=== PATIENT | female | born 1975 ===

== ENCOUNTER 2017-09-06 15:04 | Emergency (ER) | payer MEDICAID, OTHER ==
[2017-09-06 16:27] VITALS: BMI 37.8
[2017-09-06] MEDS ORDERED: Sodium Chloride 0.9% 1,000 ML IV STA (16:54)
--- NOTE | 2017-09-06 18:16 | ED PDOC ---
Arrival/HPI - General Chief Complaint: Back Pain Time Seen by Provider: 09/06/17 16:54 Historian: Patient - History of Present Illness Narrative History of Present Illness (Text): 09/06/17 18:08 42yr old female presents today with bilateral flank pain. pt with hx of kidney stones. pt describes pain as a achy, twisting pain located to the back bilaterally. pt states that the pain is the same as the last time she was diagnosed with kidney stones. pt denies cp or sob. no abdominal pain. no N/V/D/ C. no urinary symptoms. no fever/chills. pt states she was seen by dr. sinclair and given medications for pain. pt states she was given an rx for CT by dr. sinclair. no other complaints. Pt denies any trauma or injury. Past Medical History - Provider Review Nursing Documentation Reviewed: Yes - Travel History Have you recently traveled outside [place] w/in the past 3 mons?: No - Infectious Disease Hx of Infectious Diseases: None - Tetanus Immunization Tetanus Immunization: Unknown - Pulmonary Hx Asthma: Yes - Renal Hx Kidney Stones: Yes - Musculoskeletal/Rheumatological Hx Falls: No - Psychiatric Hx Substance Use: No - Surgical History Hx Tonsillectomy: Yes Hx Tubal Ligation: Yes Other/Comment: tubal ligation. tonsillectomy - Anesthesia Hx Anesthesia: Yes Hx Anesthesia Reactions: No Hx Malignant Hyperthermia: No Family/Social History - Physician Review Nursing Documentation Reviewed: Yes Family/Social History: Unknown Family HX Smoking Status: Never Smoked Hx Alcohol Use: Yes Hx Substance Use: No Allergies/Home Meds Allergies/Adverse Reactions: Allergies No Known Allergies Allergy (Verified 06/07/16 14:58) Review of Systems - Review of Systems Constitutional: absent: Fatigue, Fevers Respiratory: absent: SOB, Cough Cardiovascular: absent: Chest Pain, Palpitations Gastrointestinal: absent: Abdominal Pain, Constipation, Diarrhea, Nausea, Vomiting Genitourinary Female: absent: Dysuria, Frequency, Hematuria, Urine Output Changes, Vaginal Bleeding, Vaginal Discharge Musculoskeletal: Back Pain. absent: Arthralgias, Neck Pain Skin: absent: Rash, Pruritis Neurological: absent: Headache, Dizziness Psychiatric: absent: Anxiety, Depression Physical Exam Vital Signs Reviewed: Yes Vital Signs Temp Pulse Resp BP Pulse Ox 09/06/17 16:46 98.2 F 59 L 20 119/74 99 Temperature: Afebrile Blood Pressure: Normal Pulse: Regular Respiratory Rate: Normal Appearance: Positive for: Well-Appearing, Non-Toxic, Comfortable Pain Distress: None Mental Status: Positive for: Alert and Oriented X 3 - Systems Exam Head: Present: Atraumatic Mouth: Present: Moist Mucous Membranes Neck: Present: Normal Range of Motion Respiratory/Chest: Present: Clear to Auscultation Cardiovascular: Present: Regular Rate and Rhythm, Normal S1, S2. No: Murmurs Abdomen: No: Tenderness, Distention, Peritoneal Signs, Rebound, Guarding Back: Present: Normal Inspection, Paraspinal Tenderness (b/l paraspinal tenderness). No: CVA Tenderness, Midline Tenderness Upper Extremity: Present: Normal ROM Lower Extremity: Present: Normal ROM Neurological: Present: GCS=15, Speech Normal Skin: Present: Warm, Dry, Normal Color. No: Rashes Psychiatric: Present: Alert, Oriented x 3 Medical Decision Making ED Course and Treatment: 09/06/17 18:17 Patient is nontoxic well appearing with stable vital signs presenting with bilateral back pain CBC: wnl CMP: wnl Urinalysis: wnl CAT scan: FINDINGS: Limitations: Lack of intravenous contrast. Lung bases: Minimal atelectasis/scarring. ABDOMEN: Liver: Unremarkable. Gallbladder and bile ducts: No calcified stones. No ductal dilation. Pancreas: Unremarkable. No ductal dilation. Spleen: No splenomegaly. Adrenals: No mass. Kidneys and ureters: Few punctate/small renal calculi. No hydronephrosis. Stomach and bowel: No definite mural thickening. No obstruction. PELVIS: Appendix: Normal caliber. No inflammation. Bladder: Unremarkable. No stones. Reproductive: Unremarkable as visualized. ABDOMEN and PELVIS: Intraperitoneal space: No significant fluid collection. No free air. Bones/joints: No acute fracture. Soft tissues: Tiny umbilical hernia containing fat. Vasculature: Unremarkable. No aneurysm. Lymph nodes: No pathologically enlarged lymph nodes. IMPRESSION: 1. Nonobstructing renal calculi. 2. Incidental/non-acute findings are described above. Patient reassessment: pt non toxic well appearing; no distress. stable vitals. Discussed all results with patient in depth. advised f/u with pmd and urologist. advised immediate return if symptoms worsen,persist or if new symptoms develop. Patient verbalizes understanding of discharge instructions and need for immediate followup. all aspects of this case were discussed the attending of record. Impression: Back pain Motrin every 6 hours as needed for pain Increase fluids Followup with the urologist within the next 2 days Followup with primary care physician within the next 2 days Return if symptoms worsen persist or if new symptoms develop Reassessment Condition: Re-examined, Improved - Lab Interpretations Lab Results: 09/06/17 17:25 09/06/17 17:25 Lab Results 09/06/17 17:25: WBC 9.5, RBC 4.49, Hgb 12.7, Hct 38.9, MCV 86.6, MCH 28.3, MCHC 32.6, RDW 13.6, Plt Count 400, MPV 10.0, Gran % 63.3, Lymph % (Auto) 27.7, [place] % (Auto) 6.9 H, Eos % (Auto) 1.7, Baso % (Auto) 0.4, Gran # 6.00, Lymph # (Auto ) 2.6, [place] # (Auto) 0.7 H, Eos # (Auto) 0.2, Baso # (Auto) 0.04 09/06/17 17:25: Sodium 145, Potassium 4.0, Chloride 106, Carbon Dioxide 29, Anion Gap 15, BUN 8, Creatinine 0.8, Est GFR ( Amer) > 60, Est GFR (Non- Af Amer) > 60, Random Glucose 81, Calcium 9.2, Total Bilirubin 0.2, AST 22, ALT 28, Alkaline Phosphatase 99, Total Protein 7.5, Albumin 4.0, Globulin 3.5, Albumin/Globulin Ratio 1.2, Lipase 91 09/06/17 17:25: Urine Color Yellow, Urine Appearance Cloudy, Urine pH 8.0, Ur Specific [place] 1.015, Urine Protein Negative, Urine Glucose (UA) Negative, Urine Ketones Negative, Urine Blood Negative, Urine Nitrate Negative, Urine Bilirubin Negative, Urine Urobilinogen 0.2, Ur Leukocyte Esterase Negative - RAD Interpretation Radiology Orders: 09/06/17 18:20 ABD & PELVIS W/O PO OR IV CONT [CT] Stat - Medication Orders Current Medication Orders: Discontinued Medications Sodium Chloride (Sodium Chloride 0.9%) 1,000 mls @ 999 mls/hr IV .Q1H1M STA Stop: 09/06/17 17:54 Last Admin: 09/06/17 18:03 Dose: 999 mls/hr eMAR Start Stop Document 09/06/17 18:03 HI (Rec: 09/06/17 18:03 FL [id number]) Intravenous Solution Start Date 09/06/17 Start Time 18:03 Ketorolac Tromethamine (Toradol) 30 mg IVP STAT STA Stop: 09/06/17 18:08 Disposition/Present on Arrival - Present on Arrival Any Indicators Present on Arrival: No History of DVT/PE: No History of Uncontrolled Diabetes: No Urinary Catheter: No History of Decub. Ulcer: No History Surgical Site Infection Following: None - Disposition Have Diagnosis and Disposition been Completed?: Yes Diagnosis: Back pain Disposition: HOME/ ROUTINE Disposition Time: 22:58 Patient Plan: Discharge Condition: GOOD Discharge Instructions (ExitCare): Low Back Pain (DC) Additional Instructions: Motrin every 6 hours as needed for pain Increase fluids Followup with the urologist within the next 2 days Followup with primary care physician within the next 2 days Return if symptoms worsen persist or if new symptoms develop Prescriptions: Ibuprofen [Motrin] 600 mg PO Q6H PRN #20 tab PRN Reason: pain/fever reduction Referrals: Johnnie Sinclair MD [Staff Provider] - Follow up with primary Jennifer Goldman MD [Staff Provider] - Follow up with primary Forms: [employer] (Uzbek), WORK NOTE
[2017-09-06 18:19] LABS: URINE BILIRUBIN NEGATIVE (NEGATIVE); URINE BLOOD NEGATIVE (NEGATIVE); URINE GLUCOSE (UA) NEGATIVE (NEGATIVE); URINE LEUKOCYTE ESTERASE NEGATIVE Leu/uL (NEGATIVE); URINE UROBILINOGEN 0.2 E.U./dL (<1 E.U./dL)
[2017-09-06 18:20] LABS: BASO # 0.04 K/mm3 (0.0-2.0); BASO % 0.4 % (0.0-3.0); EOS # 0.2 (0.0-0.7); EOS % 1.7 % (1.5-5.0); GRAN % 63.3 % (50.0-68.0); HEMOGLOBIN 12.7 g/dL (12.0-16.0); LYMPH # 2.6 (1.2-3.4); LYMPH % 27.7 % (22.0-35.0); MEAN CELL VOLUME 86.6 fl (80.0-105.0); MEAN CORPUSCULAR HEMOGLOBIN 28.3 pg (25.0-35.0); MEAN CORPUSCULAR HGB CONC 32.6 g/dl (31.0-37.0); MONO # 0.7 (0.1-0.6); MONO % 6.9 % (1.0-6.0); RBC 4.49 10^6/uL (3.5-6.1); RED CELL DISTRIBUTION WIDTH 13.6 % (11.5-14.5); WHITE BLOOD COUNT 9.5 10^3/ul (4.5-11.0)
[2017-09-06 18:22] LABS: URINE APPEARANCE CLOUDY (CLEAR); URINE COLOR YELLOW (YELLOW); URINE PROTEIN NEGATIVE mg/dL (<30 mg/dL)
[2017-09-06 18:29] LABS: ALB/GLOB RATIO 1.2 (1.1-1.8); ALT/SGPT 28 U/L (7-56); AST/SGOT 22 U/L (14-36); BLOOD UREA NITROGEN 8 mg/dL (7-21); CALCIUM 9.2 mg/dL (8.4-10.5); GFR AFRICAN-AMERICAN > 60; GFR NON-AFRICAN AMERICAN > 60; LIPASE 91 U/L (23-300)
--- NOTE | 2017-09-06 21:17 | CT ---
EXAM: CT Abdomen and Pelvis Without Intravenous Contrast CLINICAL HISTORY: 42 years old, female; Pain; Abdominal pain; Flank; Other: Bilateral; Prior surgery; Surgery type: Tubal ligation; Additional info: Bilateral flank pain TECHNIQUE: Axial computed tomography images of the abdomen and pelvis without intravenous contrast. All CT scans at this facility use one or more dose reduction techniques, viz.: automated exposure control; ma/kV adjustment per patient size (including targeted exams where dose is matched to indication; i.e. head); or iterative reconstruction technique. Coronal and sagittal reformatted images were created and reviewed. COMPARISON: CT - ABD PELVIS W/O PO OR IV CONT 2017-02-07 21:19 FINDINGS: Limitations: Lack of intravenous contrast. Lung bases: Minimal atelectasis/scarring. ABDOMEN: Liver: Unremarkable. Gallbladder and bile ducts: No calcified stones. No ductal dilation. Pancreas: Unremarkable. No ductal dilation. Spleen: No splenomegaly. Adrenals: No mass. Kidneys and ureters: Few punctate/small renal calculi. No hydronephrosis. Stomach and bowel: No definite mural thickening. No obstruction. PELVIS: Appendix: Normal caliber. No inflammation. Bladder: Unremarkable. No stones. Reproductive: Unremarkable as visualized. ABDOMEN and PELVIS: Intraperitoneal space: No significant fluid collection. No free air. Bones/joints: No acute fracture. Soft tissues: Tiny umbilical hernia containing fat. Vasculature: Unremarkable. No aneurysm. Lymph nodes: No pathologically enlarged lymph nodes. IMPRESSION: 1. Nonobstructing renal calculi. 2. Incidental/non-acute findings are described above.
[2017-09-06 22:18] VITALS: RESP 18; O2SAT 98
[2017-09-06 23:24] VITALS: BP 121/69; PULSE 62; TEMP 98.3
== END 2017-09-06 23:23 | disposition home or self-care (01) ==
LOC: ED 15:04
DX: M54.9 Dorsalgia, unspecified (principal)
CPT/HCPCS: 74176; 80053; 81003; 83690; 85025; 87086; 99283; J7030

== ENCOUNTER 2017-12-18 14:04 | Emergency (ER) | payer OTHER ==
[2017-12-18 14:05] VITALS: BMI 38.6
[2017-12-18 14:18] VITALS: RESP 18; TEMP 99.3
--- NOTE | 2017-12-18 14:48 | ED PDOC ---
Arrival/HPI - General Chief Complaint: Abdominal Pain Time Seen by Provider: 12/18/17 14:27 Historian: Patient - History of Present Illness Narrative History of Present Illness (Text): 12/18/17 14:45 42yo female with pmhx of GERD who present with complaint of intermittent abdominal pain x months. States pain is intermittently sharp/poking and then achy. +Nausea. States she have not seen a Doctor for the pain. Pain is usually worse postprandial. Denies fever, chills, vomiting, diarrhea, constipation, chest pain, melena, hematemesis, any other complaint. Past Medical History - Provider Review Nursing Documentation Reviewed: Yes - Infectious Disease Hx of Infectious Diseases: None - Tetanus Immunization Tetanus Immunization: Unknown - Pulmonary Hx Asthma: Yes - Neurological Hx Migraine: Yes - Renal Hx Kidney Stones: Yes - Musculoskeletal/Rheumatological Hx Falls: No - Psychiatric Hx Substance Use: No - Surgical History Hx Tonsillectomy: Yes Hx Tubal Ligation: Yes Other/Comment: tubal ligation. tonsillectomy - Anesthesia Hx Anesthesia: Yes Hx Anesthesia Reactions: No Hx Malignant Hyperthermia: No Family/Social History - Physician Review Nursing Documentation Reviewed: Yes Family/Social History: Unknown Family HX Smoking Status: Never Smoked Hx Alcohol Use: Yes Frequency of alcohol use: Socially Hx Substance Use: No Allergies/Home Meds Allergies/Adverse Reactions: Allergies No Known Allergies Allergy (Verified 12/18/17 14:18) Home Medications: Home Meds Medication Instructions Recorded Confirmed Ranitidine HCl [Zantac] 1 tab PO DAILY 12/17/17 12/18/17 Review of Systems - Physician Review All systems were reviewed & negative as marked: Yes - Review of Systems Constitutional: Normal Eyes: Normal ENT: Normal Respiratory: Normal Cardiovascular: Normal Gastrointestinal: Abdominal Pain, Nausea. absent: Constipation, Diarrhea, Vomiting, Hematochezia, Hematemesis Genitourinary Female: Normal Musculoskeletal: Normal Skin: Normal Neurological: Normal Endocrine: Normal Hemo/Lymphatic: Normal Psychiatric: Normal Physical Exam Vital Signs Reviewed: Yes Vital Signs Temp Pulse Resp BP Pulse Ox 12/18/17 16:19 63 18 106/59 L 96 12/18/17 14:14 99.3 F 91 H 18 112/74 97 Temperature: Afebrile Blood Pressure: Normal Pulse: Regular Respiratory Rate: Normal Appearance: Positive for: Well-Appearing, Non-Toxic, Comfortable Pain Distress: None Mental Status: Positive for: Alert and Oriented X 3 - Systems Exam Head: Present: Atraumatic, Normocephalic Pupils: Present: PERRL Extroacular Muscles: Present: EOMI Conjunctiva: Present: Normal Mouth: Present: Moist Mucous Membranes Neck: Present: Normal Range of Motion Respiratory/Chest: Present: Clear to Auscultation, Good Air Exchange. No: Respiratory Distress, Accessory Muscle Use Cardiovascular: Present: Regular Rate and Rhythm, Normal S1, S2. No: Murmurs Abdomen: Present: Tenderness (LUQ tenderness), Normal Bowel Sounds, Guarding ( Voluntary), Other (soft). No: Distention, Peritoneal Signs, Rebound, McBurney' s Point Tender, Rovsing's Sign Present Back: Present: Normal Inspection Upper Extremity: Present: Normal Inspection. No: Cyanosis, Edema Lower Extremity: Present: Normal Inspection. No: Edema Neurological: Present: GCS=15, CN II-XII Intact, Speech Normal Skin: Present: Warm, Dry, Normal Color. No: Rashes Psychiatric: Present: Alert, Oriented x 3, Normal Insight, Normal Concentration Medical Decision Making ED Course and Treatment: 12/18/17 19:43 Pt in ED for stated history. She had mild LLQ tenderness. She was not in distress and hemodynamically stable. Lab was unremarkable. She had leukocyte in her UA, but asymptomatic. this was DW the pt and she will not be place on abx at this time. Abdominal/Pelvis CT ordered to r/o renal colic This CT exam was performed using one or more of the following dose reduction techniques: Automated exposure control, adjustment of the mA and/or kV according to patient size, and/or use of iterative reconstruction technique. FINDINGS: LOWER THORAX: Unremarkable. LIVER: Unremarkable. No gross lesion or ductal dilatation. GALLBLADDER AND BILE DUCTS: Unremarkable. PANCREAS: Unremarkable. No gross lesion or ductal dilatation. SPLEEN: Unremarkable. ADRENALS: Unremarkable. No mass. KIDNEYS AND URETERS: Unremarkable. No hydronephrosis. No solid mass. VASCULATURE: Unremarkable. No aortic aneurysm. BOWEL: Unremarkable. No obstruction. No gross mural thickening. APPENDIX: Normal appendix. PERITONEUM: Unremarkable. No free fluid. No free air. LYMPH NODES: Unremarkable. No enlarged lymph nodes. BLADDER: Unremarkable. REPRODUCTIVE: Unremarkable. BONES: No acute fracture. OTHER FINDINGS: None. IMPRESSION: Unremarkable contrast enhanced CT of the abdomen and pelvis. Result was DW the pt and she was referred to her PMD. - Lab Interpretations Lab Results: 12/18/17 15:00 12/18/17 15:00 Lab Results 12/18/17 15:00: Sodium 142, Potassium 3.9, Chloride 107, Carbon Dioxide 24, Anion Gap 15, BUN 8, Creatinine 0.6 L, Est GFR ( Amer) > 60, Est GFR (Non -Af Amer) > 60, Random Glucose 116 H, Calcium 9.1, Magnesium 1.9, Total Bilirubin 0.5, AST 19, ALT 21, Alkaline Phosphatase 88, Total Protein 7.3, Albumin 3.9, Globulin 3.4, Albumin/Globulin Ratio 1.1, Lipase 93 12/18/17 15:00: PT 13.8 H, INR 1.21, APTT 26.1 12/18/17 15:00: WBC 8.9, RBC 4.45, Hgb 12.6, Hct 38.4, MCV 86.3, MCH 28.3, MCHC 32.8, RDW 13.8, Plt Count 329, MPV 10.0, Gran % 67.4, Lymph % (Auto) 24.7, [place] % (Auto) 5.6, Eos % (Auto) 1.9, Baso % (Auto) 0.4, Gran # 6.01, Lymph # (Auto) 2.2, [place] # (Auto) 0.5, Eos # (Auto) 0.2, Baso # (Auto) 0.04 12/18/17 14:55: Urine Color Yellow, Urine Appearance Clear, Urine pH 6.5, Ur Specific [place] 1.025, Urine Protein Trace H, Urine Glucose (UA) Negative, Urine Ketones Negative, Urine Blood Negative, Urine Nitrate Negative, Urine Bilirubin Negative, Urine Urobilinogen 1.0 H, Ur Leukocyte Esterase Small H, Urine RBC 0 - 2, Urine WBC 5 - 10, Ur Epithelial Cells 4 - 5, Urine Bacteria Many - RAD Interpretation Radiology Orders: 12/18/17 14:38 ABD & PELVIS IV CONTRAST ONLY [CT] Stat - Medication Orders Current Medication Orders: Discontinued Medications Famotidine (Pepcid) 20 mg IVP STAT STA Stop: 12/18/17 14:36 Last Admin: 12/18/17 15:13 Dose: 20 mg IVP Administration Document 12/18/17 15:13 GMD (Rec: 12/18/17 15:13 GMD [id number]) Charges for Administration # of IVP Administrations 1 Disposition/Present on Arrival - Present on Arrival Any Indicators Present on Arrival: No History of DVT/PE: No History of Uncontrolled Diabetes: No Urinary Catheter: No History of Decub. Ulcer: No History Surgical Site Infection Following: None - Disposition Have Diagnosis and Disposition been Completed?: Yes Diagnosis: Abdominal pain Disposition: HOME/ ROUTINE Disposition Time: 16:15 Patient Plan: Discharge Condition: STABLE Discharge Instructions (ExitCare): Acute Abdomen (Belly Pain), Adult (DC) Additional Instructions: follow up with your doctor/Property Field Inspector Return to ED for any new or worsening symptoms Referrals: Marilyn Cabrera MD [Medical Doctor] - Follow up with primary Forms: [facility] (Y[place]i), WORK NOTE
[2017-12-18 15:07] LABS: PH,URINE 6.5 (4.7-8.0); URINE BILIRUBIN NEGATIVE (NEGATIVE); URINE BLOOD NEGATIVE (NEGATIVE); URINE GLUCOSE (UA) NEGATIVE (NEGATIVE); URINE LEUKOCYTE ESTERASE SMALL Leu/uL (NEGATIVE); URINE PROTEIN TRACE mg/dL (<30 mg/dL)
[2017-12-18 15:08] LABS: BASO # 0.04 K/mm3 (0.0-2.0); BASO % 0.4 % (0.0-3.0); EOS # 0.2 (0.0-0.7); EOS % 1.9 % (1.5-5.0); GRAN # 6.01 (1.4-6.5); GRAN % 67.4 % (50.0-68.0); HEMOGLOBIN 12.6 g/dL (12.0-16.0); LYMPH # 2.2 (1.2-3.4); LYMPH % 24.7 % (22.0-35.0); MEAN CELL VOLUME 86.3 fl (80.0-105.0); MEAN CORPUSCULAR HEMOGLOBIN 28.3 pg (25.0-35.0); MEAN CORPUSCULAR HGB CONC 32.8 g/dl (31.0-37.0); MONO # 0.5 (0.1-0.6); MONO % 5.6 % (1.0-6.0); RBC 4.45 10^6/uL (3.5-6.1); RED CELL DISTRIBUTION WIDTH 13.8 % (11.5-14.5); WHITE BLOOD COUNT 8.9 10^3/ul (4.5-11.0)
[2017-12-18 15:20] LABS: ALB/GLOB RATIO 1.1 (1.1-1.8); ALBUMIN 3.9 g/dL (3.0-4.8); ALT/SGPT 21 U/L (7-56); AST/SGOT 19 U/L (14-36); BLOOD UREA NITROGEN 8 mg/dL (7-21); CALCIUM 9.1 mg/dL (8.4-10.5); GFR NON-AFRICAN AMERICAN > 60; LIPASE 93 U/L (23-300)
[2017-12-18 15:22] LABS: INR 1.21; PARTIAL THROMBOPLASTIN TIME 26.1 Seconds (25.1-36.5); PROTHROMBIN TIME 13.8 SECONDS (9.4-12.5)
[2017-12-18 15:30] LABS: URINE APPEARANCE CLEAR (CLEAR); URINE COLOR YELLOW (YELLOW)
[2017-12-18 15:33] LABS: URINE RBC 0 - 2 /hpf (0-2)
[2017-12-18 15:34] LABS: URINE BACTERIA MANY (NEG)
--- NOTE | 2017-12-18 15:52 | CT ---
Date of service: 12/18/2017 PROCEDURE: CT Abdomen and Pelvis with contrast HISTORY: abdominal pain COMPARISON: None. TECHNIQUE: Contrast dose: 150 cc of Omni 350 Radiation dose: Total exam DLP = 1010 mGy-cm. This CT exam was performed using one or more of the following dose reduction techniques: Automated exposure control, adjustment of the mA and/or kV according to patient size, and/or use of iterative reconstruction technique. FINDINGS: LOWER THORAX: Unremarkable. LIVER: Unremarkable. No gross lesion or ductal dilatation. GALLBLADDER AND BILE DUCTS: Unremarkable. PANCREAS: Unremarkable. No gross lesion or ductal dilatation. SPLEEN: Unremarkable. ADRENALS: Unremarkable. No mass. KIDNEYS AND URETERS: Unremarkable. No hydronephrosis. No solid mass. VASCULATURE: Unremarkable. No aortic aneurysm. BOWEL: Unremarkable. No obstruction. No gross mural thickening. APPENDIX: Normal appendix. PERITONEUM: Unremarkable. No free fluid. No free air. LYMPH NODES: Unremarkable. No enlarged lymph nodes. BLADDER: Unremarkable. REPRODUCTIVE: Unremarkable. BONES: No acute fracture. OTHER FINDINGS: None. IMPRESSION: Unremarkable contrast enhanced CT of the abdomen and pelvis.
[2017-12-18 16:20] VITALS: BP 106/59; PULSE 63; O2SAT 96
== END 2017-12-18 16:28 | disposition home or self-care (01) ==
LOC: ED 14:04
DX: R10.9 Unspecified abdominal pain (principal); K21.9 Gastro-esophageal reflux disease without esophagitis; Z87.442 Personal history of urinary calculi
CPT/HCPCS: 74177; 80053; 81001; 83690; 83735; 85025; 85610; 85730; 87086; 96374; 99284; Q9967

== ENCOUNTER 2018-05-30 12:25 | Emergency (ER) | payer OTHER ==
[2018-05-30 12:25] VITALS: BMI 38.6
[2018-05-30 12:52] VITALS: RESP 18; TEMP 97.8
[2018-05-30] MEDS ORDERED: Sodium Chloride 0.9% 1,000 ML IV STA ×2 (13:10→15:02)
[2018-05-30 13:42] LABS: BASO # 0.03 K/mm3 (0.0-2.0); BASO % 0.3 % (0.0-3.0); EOS # 0.1 (0.0-0.7); EOS % 1.2 % (1.5-5.0); HEMOGLOBIN 12.8 g/dL (12.0-16.0); LYMPH # 2.1 (1.2-3.4); LYMPH % 21.3 % (22.0-35.0); MEAN CELL VOLUME 87.3 fl (80.0-105.0); MEAN CORPUSCULAR HEMOGLOBIN 28.6 pg (25.0-35.0); MEAN CORPUSCULAR HGB CONC 32.7 g/dl (31.0-37.0); MEAN PLATELET VOLUME 9.9 fl (7.0-11.0); MONO # 0.5 (0.1-0.6); MONO % 4.9 % (1.0-6.0); RBC 4.48 10^6/uL (3.5-6.1); RED CELL DISTRIBUTION WIDTH 13.9 % (11.5-14.5)
[2018-05-30 13:50] LABS: ALB/GLOB RATIO 1.1 (1.1-1.8); ALBUMIN 3.9 g/dL (3.0-4.8); ALT/SGPT 16 U/L (7-56); AST/SGOT 21 U/L (14-36); BLOOD UREA NITROGEN 9 mg/dL (7-21); CALCIUM 9.4 mg/dL (8.4-10.5); GFR NON-AFRICAN AMERICAN > 60; LIPASE 142 U/L (23-300)
[2018-05-30 14:57] LABS: PH,URINE 7.5 (4.7-8.0); URINE BILIRUBIN NEGATIVE (NEGATIVE); URINE BLOOD NEGATIVE (NEGATIVE); URINE GLUCOSE (UA) NEGATIVE (NEGATIVE); URINE LEUKOCYTE ESTERASE NEGATIVE Leu/uL (NEGATIVE); URINE PROTEIN NEGATIVE mg/dL (<30 mg/dL); URINE UROBILINOGEN 0.2 E.U./dL (<1 E.U./dL)
[2018-05-30 14:58] LABS: URINE APPEARANCE CLEAR (CLEAR); URINE COLOR STRAW (YELLOW)
--- NOTE | 2018-05-30 16:00 | CT ---
Date of service: 05/30/2018 PROCEDURE: CT Abdomen and Pelvis with contrast HISTORY: left flank pain and rlq pain COMPARISON: None. TECHNIQUE: Contrast dose: 150 cc of Omni 350 Radiation dose: Total exam DLP = 1052.76 mGy-cm. This CT exam was performed using one or more of the following dose reduction techniques: Automated exposure control, adjustment of the mA and/or kV according to patient size, and/or use of iterative reconstruction technique. FINDINGS: LOWER THORAX: Unremarkable. LIVER: Unremarkable. No gross lesion or ductal dilatation. GALLBLADDER AND BILE DUCTS: Unremarkable. PANCREAS: Unremarkable. No gross lesion or ductal dilatation. SPLEEN: Unremarkable. ADRENALS: Unremarkable. No mass. KIDNEYS AND URETERS: Unremarkable. No hydronephrosis. No solid mass. There is a 4 mm nonobstructing stone in the upper pole of the left kidney VASCULATURE: Unremarkable. No aortic aneurysm. No aortic atherosclerotic calcification or mural plaque present. BOWEL: Unremarkable. No obstruction. No gross mural thickening. APPENDIX: Normal appendix. PERITONEUM: Unremarkable. No free fluid. No free air. LYMPH NODES: Unremarkable. No enlarged lymph nodes. BLADDER: Unremarkable. REPRODUCTIVE: Unremarkable. BONES: No acute fracture. OTHER FINDINGS: None. IMPRESSION: No acute intra-abdominal findings. No evidence of ureteral stone
--- NOTE | 2018-05-30 16:12 | ED PDOC ---
Arrival/HPI - General Chief Complaint: Back Pain Time Seen by Provider: 05/30/18 12:32 Historian: Patient - History of Present Illness Narrative History of Present Illness (Text): 05/30/18 16:05 43-year-old female presents today with a three-day history of left flank pain and right lower quadrant abdominal pain. Patient states she has a history of kidney stones and has been having some back pain for a couple of months now. Pat ient states over the past 3 days the pain is worsened. She describes the pain as sharp and wraps around to the left upper quadrant of the abdomen. Patient denies fevers or chills. No vomiting or diarrhea but states she was feeling nauseous yesterday. Patient denies dysuria or urinary frequency. Patient denies diarrhea or constipation. Patient states she is being followed by Dr. Sinclair for her his tory of kidney stones. No chest pain or shortness of breath. No other complaints Past Medical History - Provider Review Nursing Documentation Reviewed: Yes - Travel History Have you recently traveled outside [place] w/in the past 3 mons?: No - Infectious Disease Hx of Infectious Diseases: None - Tetanus Immunization Tetanus Immunization: Unknown - Pulmonary Hx Asthma: Yes - Neurological Hx Migraine: Yes - Renal Hx Kidney Stones: Yes - Musculoskeletal/Rheumatological Hx Falls: No - Psychiatric Hx Substance Use: No - Surgical History Hx Tonsillectomy: Yes Hx Tubal Ligation: Yes Other/Comment: tubal ligation. tonsillectomy - Anesthesia Hx Anesthesia: Yes Hx Anesthesia Reactions: No Hx Malignant Hyperthermia: No Family/Social History - Physician Review Nursing Documentation Reviewed: Yes Family/Social History: Unknown Family HX Smoking Status: Never Smoked Hx Alcohol Use: Yes Hx Substance Use: No Allergies/Home Meds Allergies/Adverse Reactions: Allergies No Known Allergies Allergy (Verified 12/18/17 14:18) Home Medications: Home Meds Medication Instructions Recorded Confirmed Ranitidine HCl [Zantac] 1 tab PO DAILY 12/17/17 12/18/17 Review of Systems - Review of Systems Constitutional: absent: Fatigue, Fevers Respiratory: absent: SOB, Cough Cardiovascular: absent: Chest Pain, Palpitations Gastrointestinal: Abdominal Pain, Nausea. absent: Constipation, Diarrhea, Vomiting Genitourinary Female: absent: Dysuria, Frequency, Hematuria Musculoskeletal: Back Pain. absent: Arthralgias, Neck Pain Skin: absent: Rash, Pruritis Neurological: absent: Headache, Dizziness Psychiatric: absent: Anxiety, Depression Physical Exam Vital Signs Reviewed: Yes Vital Signs Temp Pulse Resp BP Pulse Ox 05/30/18 12:25 97.8 F 86 18 116/75 97 Temperature: Afebrile Blood Pressure: Normal Pulse: Regular Respiratory Rate: Normal Appearance: Positive for: Well-Appearing, Non-Toxic, Comfortable Pain Distress: None Mental Status: Positive for: Alert and Oriented X 3 - Systems Exam Head: Present: Atraumatic Mouth: Present: Moist Mucous Membranes Neck: Present: Normal Range of Motion Respiratory/Chest: Present: Clear to Auscultation, Good Air Exchange. No: Respiratory Distress, Accessory Muscle Use Cardiovascular: Present: Regular Rate and Rhythm, Normal S1, S2. No: Murmurs Abdomen: Present: Tenderness (minimal LUQ tenderness, ), Normal Bowel Sounds. No: Distention, Peritoneal Signs, Rebound, Guarding Back: Present: Normal Inspection, Other (minimal left flank tenderness. ). No: CVA Tenderness, Midline Tenderness, Paraspinal Tenderness Upper Extremity: Present: Normal ROM Lower Extremity: Present: Normal ROM Neurological: Present: GCS=15, Speech Normal Skin: Present: Warm, Dry, Normal Color. No: Rashes Psychiatric: Present: Alert, Oriented x 3 Medical Decision Making ED Course and Treatment: 05/30/18 16:07 Patient is nontoxic well appearing with stable vital signs presenting with left flank and left sided abdominal pain. pt with flank pain CBC wnl CMP wnl Lipase wnl Urinalysis wnl CAT scan: FINDINGS: LOWER THORAX: Unremarkable. LIVER: Unremarkable. No gross lesion or ductal dilatation. GALLBLADDER AND BILE DUCTS: Unremarkable. PANCREAS: Unremarkable. No gross lesion or ductal dilatation. SPLEEN: Unremarkable. ADRENALS: Unremarkable. No mass. KIDNEYS AND URETERS: Unremarkable. No hydronephrosis. No solid mass. There is a 4 mm nonobstructing stone in the upper pole of the left kidney VASCULATURE: Unremarkable. No aortic aneurysm. No aortic atherosclerotic calcification or mural plaque present. BOWEL: Unremarkable. No obstruction. No gross mural thickening. APPENDIX: Normal appendix. PERITONEUM: Unremarkable. No free fluid. No free air. LYMPH NODES: Unremarkable. No enlarged lymph nodes. BLADDER: Unremarkable. REPRODUCTIVE: Unremarkable. BONES: No acute fracture. OTHER FINDINGS: None. IMPRESSION: No acute intra-abdominal findings. No evidence of ureteral stone Patient reassessment: pt is non toxic well appearing; no distress. stable vitals. Discussed all results with patient in depth. pt resting comfortably in er. vitals stable. pt advised to f/u with the urologist and GI specialist within the next 2 days. pt advised immediate return if symptoms worsen,persist or if new symptoms develop. Patient verbalizes understanding of discharge instructions and need for immediate followup. all aspects of this case were discussed the attending of record. Impression: Abdominal pain, flank pain Motrin every 6 hours/tylenol every 4 hours as needed for pain Pepcid one tablet daily Follow up with the urologist within the next 2 days. Follow up with the GI doctor within the next 2 days. Follow up with primary care physician within the next 2 days Return immediately if symptoms worsen persist or if new symptoms develop: High fevers, increasing pain, vomiting, diarrhea or any other concerning symptoms develop 05/30/18 16:41 Reassessment Condition: Re-examined, Improved - Lab Interpretations Lab Results: Total Bilirubin 0.5 mg/dL (0.2-1.3) 05/30/18 13:30 AST 21 U/L (14-36) 05/30/18 13:30 ALT 16 U/L (7-56) 05/30/18 13:30 Alkaline Phosphatase 88 U/L (38-126) 05/30/18 13:30 Total Protein 7.4 g/dL (5.8-8.3) 05/30/18 13:30 Albumin 3.9 g/dL (3.0-4.8) 05/30/18 13:30 Globulin 3.4 gm/dL 05/30/18 13:30 Albumin/Globulin Ratio 1.1 (1.1-1.8) 05/30/18 13:30 Lipase 142 U/L (23-300) 05/30/18 13:30 Urine Color Straw (YELLOW) 05/30/18 14:50 Urine Appearance Clear (CLEAR) 05/30/18 14:50 Urine pH 7.5 (4.7-8.0) 05/30/18 14:50 Ur Specific [place] 1.015 (1.005-1.035) 05/30/18 14:50 Urine Protein Negative mg/dL (<30 mg/dL) 05/30/18 14:50 Urine Glucose (UA) Negative mg/dL (NEGATIVE) 05/30/18 14:50 Urine Ketones Negative mg/dL (NEGATIVE) 05/30/18 14:50 Urine Blood Negative (NEGATIVE) 05/30/18 14:50 Urine Nitrate Negative (NEGATIVE) 05/30/18 14:50 Urine Bilirubin Negative (NEGATIVE) 05/30/18 14:50 Urine Urobilinogen 0.2 E.U./dL (<1 E.U./dL) 05/30/18 14:50 Ur Leukocyte Esterase Negative Lisa/uL (NEGATIVE) 05/30/18 14:50 - RAD Interpretation Radiology Orders: 05/30/18 13:22 ABD & PELVIS IV CONTRAST ONLY [CT] Stat - Medication Orders Current Medication Orders: Discontinued Medications Sodium Chloride (Sodium Chloride 0.9%) 1,000 mls @ 999 mls/hr IV .Q1H1M STA Stop: 05/30/18 14:10 Last Admin: 05/30/18 13:40 Dose: 999 mls/hr eMAR Start Stop Document 05/30/18 13:40 ALEXIS (Rec: 05/30/18 13:41 ALEXIS [id number]) Intravenous Solution Start Date 05/30/18 Start Time 13:40 End Date 05/30/18 End time 14:40 Total Infusion Time 60 Sodium Chloride (Sodium Chloride 0.9%) 1,000 mls @ 999 mls/hr IV .Q1H1M STA Stop: 05/30/18 16:02 Last Admin: 05/30/18 15:11 Dose: 999 mls/hr eMAR Start Stop Document 05/30/18 15:11 ALEXIS (Rec: 05/30/18 15:11 ALEXIS [id number]) Intravenous Solution Start Date 05/30/18 Start Time 15:11 Ketorolac Tromethamine (Toradol) 30 mg IVP STAT STA Stop: 05/30/18 15:03 Last Admin: 05/30/18 15:10 Dose: 30 mg MAR Pain Assessment Document 05/30/18 15:10 ALEXIS (Rec: 05/30/18 15:10 ALEXIS [id number]) Pain Reassessment Is this a pain reassessment? No Sleep Is patient sleeping during reassessment? No Presence of Pain Presence of Pain Yes IVP Administration Document 05/30/18 15:10 ALEXIS (Rec: 05/30/18 15:10 ALEXIS [id number]) Charges for Administration # of IVP Administrations 1 Disposition/Present on Arrival - Present on Arrival Any Indicators Present on Arrival: No History of DVT/PE: No History of Uncontrolled Diabetes: No Urinary Catheter: No History of Decub. Ulcer: No History Surgical Site Infection Following: None - Disposition Have Diagnosis and Disposition been Completed?: Yes Diagnosis: Abdominal pain, Flank pain Disposition: HOME/ ROUTINE Disposition Time: 16:12 Patient Plan: Discharge Patient Problems: Current Active Problems Problem Status Onset Abdominal pain Acute Flank pain Acute Condition: GOOD Discharge Instructions (ExitCare): Acute Abdomen (Belly Pain), Flank Pain (DC) Additional Instructions: Motrin every 6 hours/tylenol every 4 hours as needed for pain Pepcid one tablet daily Follow up with the urologist within the next 2 days. Follow up with the GI doctor within the next 2 days. Follow up with primary care physician within the next 2 days Return immediately if symptoms worsen persist or if new symptoms develop: High fevers, increasing pain, vomiting, diarrhea or any other concerning symptoms develop Prescriptions: Famotidine [Pepcid] 20 mg PO DAILY #30 tab Ibuprofen [Motrin] 600 mg PO Q6H PRN #20 tab PRN Reason: pain/fever reduction Referrals: [facility] [Outside] - Follow up with primary Johnnie Sinclair MD [Staff Provider] - Follow up with primary Zeina Florez MD [Medical Doctor] - Follow up with primary Jacques Cobb DO [Staff Provider] - Follow up with primary Forms: [employer] ([place]ian), WORK NOTE
[2018-05-30 17:14] VITALS: BP 115/75; PULSE 68
[2018-05-30 17:20] VITALS: O2SAT 99
== END 2018-05-30 17:19 | disposition home or self-care (01) ==
LOC: ED 12:25
DX: R10.9 Unspecified abdominal pain (principal); Z87.442 Personal history of urinary calculi; Z98.51 Tubal ligation status
CPT/HCPCS: 74177; 80053; 81003; 81025; 83690; 85025; 87086; 96361; 96374; 99283; J1885; J7030; Q9967